=== PATIENT | female | born 1965 | race Caucasian/White ===

== ENCOUNTER 2018-02-18 11:56 | Emergency (ER) | payer OTHER ==
[~2018-02-18] VITALS: Ht 172.7 cm; Wt 91.0 kg
[2018-02-18 11:59] VITALS: BP 142/68; PULSE 98; RESP 18; TEMP 98.4; O2SAT 97
[2018-02-18] MEDS ORDERED: DEPA500T PO (12:21)
[2018-02-18] MEDS ORDERED: RISP1 PO (12:21)
[2018-02-18] MEDS ORDERED: LEVO50TA4 PO (12:21)
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
[2018-02-18] MEDS ORDERED: ROBA750T PO (12:26)
[2018-02-18] MEDS ORDERED: IBUP1TAB7 PO (12:26)
[2018-02-18] MEDS ORDERED: CYCLOBENZAPRINE HCL 10 MG TAB PO ONE (12:30)
[2018-02-18] MEDS ORDERED: IBUPROFEN 800 MG TAB PO ONE (12:30)
== END 2018-02-18 12:43 | disposition home or self-care (01) ==
LOC: PHEFT 11:56
DX: S39.012A Strain of muscle, fascia and tendon of lower back, initial encounter (principal); S29.012A Strain of muscle and tendon of back wall of thorax, initial encounter; E03.9 Hypothyroidism, unspecified; V49.59XA Passenger injured in collision with other motor vehicles in traffic accident, initial encounter; Y92.410 Unspecified street and highway as the place of occurrence of the external cause
CPT/HCPCS: 99283